=== PATIENT | male | born 1995 | race African-American/Black ===

== ENCOUNTER 2018-01-12 11:48 | Emergency (ER) | payer OTHER ==
[~2018-01-12] VITALS: Ht 182.9 cm; Wt 86.3 kg
[2018-01-12 13:56] VITALS: BP 143/78
== END 2018-01-12 13:50 | disposition home or self-care (01) ==
LOC: EME 11:48
PROC: 2W3BX1Z Immobilization of Left Upper Arm using Splint (ICD-10-PCS; principal; 2018-01-12)
DX: S52.125A Nondisplaced fracture of head of left radius, initial encounter for closed fracture (principal); M25.532 Pain in left wrist; W18.30XA Fall on same level, unspecified, initial encounter; Y93.67 Activity, basketball; F17.200 Nicotine dependence, unspecified, uncomplicated
CPT/HCPCS: 73080; 73110; 73130; 99281; 99284